=== PATIENT | male | born 1980 | race Caucasian/White ===

== ENCOUNTER 2016-07-05 14:42 | Emergency (ER) | payer BC ==
[~2016-07-05] VITALS: Ht 182.9 cm; Wt 98.9 kg
--- NOTE | 2016-07-05 15:15 | NUR ---
PT CAME FROM HOME. AMBUALTORY WITH STEADY GAIT. SPEAKING IN FULL SENTENCES. NAD NOTED. VSS. C/O CHEST DISCOMFORT/PALPITATION X 4 DAYS S/P RUNNING, PT VERBALIZED FEELING CONGESTED, +EAR PAIN. DENIES ANY PMHX. WCTM PT AT THIS TIME. WAITING FOR FURTHER PLAN OF CARE
--- NOTE | 2016-07-05 15:36 | NUR ---
AT BEDSIDE PERFORMING MSE
[2016-07-05 16:23] LABS: CALCIUM 9.5 mg/dL (8.5-10.1); CREATININE 1.2 mg/dL (0.6-1.3); POTASSIUM 4.5 mmol/L (3.5-5.1)
[2016-07-05 16:25] LABS: BASOPHILS % (AUTO) 0.6 % (0.0-2.0); EOSINOPHILS # (AUTO) 0.1 K/uL (0.0-0.7); EOSINOPHILS % (AUTO) 0.9 % (0.0-7.0); HEMATOCRIT 44.9 % (40-50); HEMOGLOBIN 15.9 G/DL (14.0-18.0); LYMPHOCYTES # (AUTO) 2.3 K/UL (0.8-4.8); LYMPHOCYTES % (AUTO) 36.8 % (20.5-51.5); MEAN CORPUSCULAR HEMOGLOBIN 33.2 UUG (27.0-31.0); MEAN CORPUSCULAR HGB CONC 35 g/dL (32.0-37.0); MEAN CORPUSCULAR VOLUME 93.7 FL (82.0-92.0); MONOCYTES # (AUTO) 0.3 K/UL (0.1-1.30); MONOCYTES % (AUTO) 5.6 % (0.0-11.0); NEUTROPHILS # (AUTO) 3.5 K/UL (1.8-8.9); NEUTROPHILS % (AUTO) 56.1 % (38.5-71.5); PLATELET COUNT (AUTO) 184 K/UL (150-450); RED BLOOD CELL COUNT(AUTO) 4.79 MIL/UL (4.7-6.1); RED CELL DISTRIBUTION WIDTH 12.2 % (11.5-14.5); WHITE BLOOD COUNT (AUTO) 6.2 K/UL (4.0-11.2)
[2016-07-05 16:28] LABS: ALBUMIN 4.2 g/dL (3.4-5.0); BILIRUBIN,DIRECT 0.1 mg/dL (0.0-0.2); BILIRUBIN,TOTAL 0.6 mg/dL (0.2-1.0); TOTAL PROTEIN, SERUM 7.6 g/dL (6.4-8.2)
--- NOTE | 2016-07-05 17:12 | NUR ---
Patient discharged to home in stable conditon. Written and verbal after care instructions given by MD HYDE. Patient verbalizes understanding of instructions. No further questions or concerns noted prior on leaving the ED.
[2016-07-05 17:14] VITALS: BP 128/74
== END 2016-07-05 17:14 | disposition home or self-care (01) ==
LOC: ER 14:46
DX: R00.2 Palpitations (principal); F10.20 Alcohol dependence, uncomplicated; F17.200 Nicotine dependence, unspecified, uncomplicated
CPT/HCPCS: 36415; 70030-TC; 71010; 84443; 84479; 85025; 85730; 93005; A4663

== ENCOUNTER 2018-09-01 14:26 | Emergency (ER) | payer BC ==
[~2018-09-01] VITALS: Ht 182.9 cm; Wt 99.8 kg
[2018-09-01] MEDS ORDERED: ACETAMINOPHEN ES 500 MG TABLET PO ONE (14:45)
[2018-09-01] MEDS ORDERED: ACETAMINOPHEN ES 500 MG TABLET ONE (14:52)
--- NOTE | 2018-09-01 15:20 | NUR ---
DR HUBBARD MADE PATIENT AWARE OF TEST RESULTS. WILL BE DC HOME.
--- NOTE | 2018-09-01 15:24 | NUR ---
Patient discharged to home in stable conditon. Written and verbal after care instructions given. Patient verbalizes understanding of instructions.
[2018-09-01 15:26] VITALS: BP 128/85
== END 2018-09-01 15:27 | disposition home or self-care (01) ==
LOC: ER 14:26
DX: J06.9 Acute upper respiratory infection, unspecified (principal); F17.200 Nicotine dependence, unspecified, uncomplicated
CPT/HCPCS: 36415; 86403; 87070; A4663; A9150